=== PATIENT | female | born 1960 | race Two or more races ===

== ENCOUNTER 2020-10-18 09:43 | Outpatient (CLI) | payer OTHER ==
[~2020-10-18 09:43] MED LIST: CATAFLAM50 MG PO; ORPH100T PO
== END 2020-10-18 10:14 | disposition home or self-care (01) ==
LOC: NUCLEAR 09:43
PROVIDERS: ATTEND Internal Medicine Cardiovascular Disease
DX: R94.31 Abnormal electrocardiogram [ECG] [EKG] (principal); I25.10 Atherosclerotic heart disease of native coronary artery without angina pectoris; I24.1 Dressler's syndrome